=== PATIENT | male | born 1965 | race Hispanic/Latino ===

== ENCOUNTER 2018-02-07 12:45 | Emergency (ER) | payer SELFPAY ==
[2018-02-07 12:52] VITALS: BP 124/92
[2018-02-07] MEDS ORDERED: MOTRIN PO ONE (16:08)
--- NOTE | 2018-02-07 16:10 | Emergency Department Report ---
Blank Doc - Documentation Documentation: Patient is a 52-year-old male who presented with left knee pain. Patient states he has been hurting for several months however last 3 days he is unable to bear weight. Patient will have x-ray of the knee to rule of arthritis and a stress fracture.
== END 2018-02-07 16:39 | disposition left against medical advice (07) ==
LOC: ED 12:45
DX: M25.562 Pain in left knee (principal); Z53.21 Procedure and treatment not carried out due to patient leaving prior to being seen by health care provider